=== PATIENT | male | born 1945 | race Caucasian/White ===

== ENCOUNTER 2020-06-22 17:51 | Inpatient (IN) ==
[2020-06-22] MEDS ORDERED: Acetaminophen 325 MG TABLET PO PRN (19:13)
[2020-06-22] MEDS ORDERED: Ondansetron ODT 4 MG TAB.RAPDIS SL PRN (19:13)
[2020-06-22] MEDS ORDERED: Naloxone 0.4 MG/ML INJ IVP PRN (19:13)
[2020-06-22] MEDS ORDERED: traZODone 50 MG TABLET PO PRN (20:03)
[2020-06-22] MEDS ORDERED: D5% in Water 1,000 ML IVC PRN (20:10)
[2020-06-22] MEDS ORDERED: *HR* Dextrose 50 % in Water (Vial) 50 ML VIAL IVP PRN (20:10)
[2020-06-22] MEDS ORDERED: Dextrose Gel 15 GM/37.5 ML TUBE PO PRN ×2 (20:10)
[2020-06-22] MEDS ORDERED: 0.9 % Sodium Chloride 1,000 ML IVC ONE (20:15)
[2020-06-22] MEDS: Melatonin 3 MG TABLET PO PRN (20:56)
[2020-06-22] MEDS: Famotidine 20 MG TABLET PO SCH (20:59)
[2020-06-22] MEDS ORDERED: Melatonin 3 MG TABLET PO PRN (21:00)
[2020-06-22] MEDS: *HR* Heparin 5,000 UNIT/ML VIAL SQ SCH (21:08)
[2020-06-22] MEDS ORDERED: hydrOXYzine pamoate 25 MG CAPSULE PO PRN (21:21)
[2020-06-22] MEDS: levoFLOXacin 750 MG/150 ML 750 MG/150 ML BAG IVPB SCH (21:59)
[2020-06-22] MEDS: Ipratropium/Albuterol Neb 3 ML IH PRN (22:16)
[2020-06-23] MEDS ORDERED: traZODone 50 MG TABLET PO PRN (00:49)
[2020-06-23] MEDS ORDERED: Saliva Stimulant 44.3ml BOTTLE PO PRN (01:13)
[2020-06-23] MEDS ORDERED: Menthol 1 EACH LOZENGE PO PRN (01:16)
[2020-06-23 04:55] LABS: Basophils % 0.1 %; Eosinophils % 0.3 %; Estimated Average Glucose 143 mg/dl; Hematocrit 48.9 % (37.5-50.1); Hemoglobin A1C 6.6 %; Immature Granulocytes % 0.2 % (0-4); Lymphocytes # 0.7 K/mcL (0.6-4.6); Lymphocytes % 7.6 %; Mean Corpuscular HGB Conc 32.7 g/dL (31.6-35.5); Mean Corpuscular Hemoglobin 31.1 pg (28.0-33.3); Monocytes # 0.7 K/mcL (0.0-1.3); Monocytes % 6.8 %; Neutrophils # 8.3 K/mcL (1.6-8.9); Platelet Count 153 K/mcL (140-400); Red Blood Count 5.15 M/mcL (4.19-5.50); Red Cell Distribution Width 14.4 % (11.5-14.5); White Blood Count 9.7 K/mcL (4.3-11.1)
[2020-06-23 05:13] LABS: Alanine Aminotransferase 15 Units/L (7-52); Albumin 3.5 g/dL (3.5-5.7); Albumin/Globulin Ratio 1.1 (1.1-2.2); Alkaline Phosphatase 81 Units/L (34-104); Aspartate Amino Transferase 16 Units/L (13-39); BUN/Creatinine Ratio 11 (6-26); Bilirubin,Total 1.2 mg/dL (0.3-1.0); Blood Urea Nitrogen 11 mg/dL (8-23); Calcium 8.5 mg/dL (8.6-10.3); Carbon Dioxide 29 mEq/L (23-29); Chloride 103 mEq/L (98-107); Globulin 3.1 g/dL (2.4-3.5); Glucose 115 mg/dL (70-105); Magnesium 1.8 mg/dL (1.6-2.6); Osmolality,Calculated 282 (280-300); Phosphorous 2.3 mg/dL (2.7-4.5); Potassium 4.1 mEq/L (3.5-5.1); Sodium 136 mEq/L (136-145); Total Protein 6.6 g/dL (6.4-8.9); eGFR For African Americans > 60 (> 60); eGFR For Non-African Americans > 60 (> 60)
[2020-06-23] MEDS: *HR* Heparin 5,000 UNIT/ML VIAL SQ SCH ×3 (06:43→20:36)
[2020-06-23] MEDS: Insulin LISPRO 300 UNITS/3 ML VIAL SUBQ SCH ×3 (08:58→17:21)
[2020-06-23] MEDS: Famotidine 20 MG TABLET PO SCH ×2 (09:41→20:35)
[2020-06-23] MEDS: levoFLOXacin 750 MG/150 ML 750 MG/150 ML BAG IVPB SCH (09:41)
[2020-06-23] MEDS: Ipratropium/Albuterol Neb 3 ML IH PRN ×3 (09:59→20:09)
[2020-06-23] MEDS ORDERED: hydrOXYzine pamoate 25 MG CAPSULE PO PRN (13:54)
[2020-06-23] MEDS: Piperacillin/Tazobactam 3.375 GM in 0.9 % Sodium Chloride Mini Bag 100 ML IVPB SCH ×2 (15:02→23:28)
[2020-06-23] MEDS: MethylPREDNISolone 40 MG/ML VIAL IVP SCH ×2 (15:02→23:28)
[2020-06-23] MEDS: Budesonide/Formoterol 160/4.5 1 PUFF INH IH SCH (20:09)
[2020-06-23] MEDS: Melatonin 3 MG TABLET PO PRN (20:43)
[2020-06-23] MEDS ORDERED: traZODone 50 MG TABLET PO SCH (21:00)
[2020-06-23] MEDS ORDERED: Pregabalin 75 MG CAPSULE PO SCH (21:00)
[2020-06-23] MEDS ORDERED: hydrOXYzine pamoate 25 MG CAPSULE PO SCH (21:00)
[2020-06-24 02:07] LABS: Hematocrit 49.3 % (37.5-50.1); Hemoglobin 16.2 g/dL (12.9-16.9); Mean Corpuscular HGB Conc 32.9 g/dL (31.6-35.5); Mean Corpuscular Hemoglobin 31.1 pg (28.0-33.3); Mean Corpuscular Volume 94.6 fL (83.0-100.0); Mean Platelet Volume 10.3 fL (9.4-12.4); Platelet Count 161 K/mcL (140-400); Red Blood Count 5.21 M/mcL (4.19-5.50); Red Cell Distribution Width 14.1 % (11.5-14.5); White Blood Count 4.9 K/mcL (4.3-11.1)
[2020-06-24] MEDS: *HR* Heparin 5,000 UNIT/ML VIAL SQ SCH ×2 (05:39→15:04)
[2020-06-24] MEDS: Ipratropium/Albuterol Neb 3 ML IH PRN ×2 (07:21→15:38)
[2020-06-24] MEDS: Budesonide/Formoterol 160/4.5 1 PUFF INH IH SCH (07:21)
[2020-06-24] MEDS: MethylPREDNISolone 40 MG/ML VIAL IVP SCH ×2 (08:47→15:04)
[2020-06-24] MEDS: Famotidine 20 MG TABLET PO SCH (08:47)
[2020-06-24] MEDS: Piperacillin/Tazobactam 3.375 GM in 0.9 % Sodium Chloride Mini Bag 100 ML IVPB SCH ×2 (08:47→16:44)
[2020-06-24] MEDS: levoFLOXacin 750 MG/150 ML 750 MG/150 ML BAG IVPB SCH (08:48)
[2020-06-24] MEDS: Insulin LISPRO 300 UNITS/3 ML VIAL SUBQ SCH ×3 (08:49→16:48)
[2020-06-24] MEDS ORDERED: Aspirin 81 MG TAB.CHEW PO SCH (09:00)
[2020-06-24] MEDS ORDERED: Tiotropium 10 INH DOSE IH SCH (10:00)
[2020-06-24] MEDS ORDERED: Dexamethasone 4 MG/ML VIAL ONE (10:37)
[2020-06-24] MEDS ORDERED: *HR* FentaNYL (PF) 100 MCG/2 ML VIAL IVP PRN (10:37)
[2020-06-24] MEDS ORDERED: Ondansetron 4 MG/2 ML VIAL IVP PRN (10:37)
[2020-06-24] MEDS ORDERED: *HR* FentaNYL (PF) 100 MCG/2 ML VIAL ONE (10:37)
[2020-06-24] MEDS ORDERED: Lidocaine -MPF 2% 2 ML VIAL ONE (10:37)
[2020-06-24] MEDS ORDERED: Ondansetron 4 MG/2 ML VIAL ONE (10:37)
[2020-06-24] MEDS ORDERED: *HR* Propofol 200 MG/20 ML VIAL IVP ONE (10:38)
[2020-06-24] MEDS ORDERED: *HR* Succinylcholine 200 MG/10 ML VIAL IVP ONE (10:40)
[2020-06-24] MEDS ORDERED: *HR* Midazolam HCl 2 MG/2 ML VIAL ONE (10:40)
[2020-06-24] MEDS ORDERED: Ringers Solution, Lactated 1,000 ML IVC SCH (10:45)
[2020-06-24] MEDS ORDERED: *HR* EPINEPHrine 1 MG/10 ML SYRINGE INTRATRACH PRN (11:00)
[2020-06-24] MEDS ORDERED: Ipratropium/Albuterol Neb 3 ML ONE (11:15)
[2020-06-24] MEDS ORDERED: *HR* EPINEPHrine 1 MG/10 ML SYRINGE ONE (11:50)
[2020-06-24 14:26] VITALS: BP 148/79
[2020-06-24 22:27] LABS: Appearance of Body Fluid Hazy (Clear); Volume of Body Fluid 15 mL
== END 2020-06-24 19:45 | disposition left against medical advice (07) | DRG 871 ==
LOC: 3ANU
PROVIDERS: ADMIT Internal Medicine; ATTEND Internal Medicine

== ENCOUNTER 2020-07-15 11:09 | Observation (INO) ==
[2020-07-15] MEDS ORDERED: Isovue-370 500 ML BOTTLE IVP ONE (11:30)
[2020-07-15 11:39] LABS: Bilirubin,Urine Negative (Negative); Blood,Urine Negative (Negative); Clarity,Urine Clear (Clear); Color,Urine Colorless (Yellow); Glucose,Urine (UA) Normal (Normal); Ketones,Urine Negative (Negative); Leukocyte Esterase,Urine Negative (Negative); Nitrite,Urine Negative (Negative); Protein,Urine Negative (Neg-Trace); Specific Gravity,Urine 1.005 (1.010-1.025); Urobilinogen,Urine Normal (Normal)
[2020-07-15] MEDS ORDERED: 0.9 % Sodium Chloride 1,000 ML IVC ONE (11:40)
[2020-07-15 11:42] LABS: Basophils % 0.1 %; Eosinophils % 0.1 %; Hematocrit 52.6 % (37.5-50.1); Hemoglobin 17.5 g/dL (12.9-16.9); Immature Granulocytes % 0.2 % (0-4); Lymphocytes # 0.9 K/mcL (0.6-4.6); Lymphocytes % 6.5 %; Mean Corpuscular HGB Conc 33.3 g/dL (31.6-35.5); Mean Corpuscular Hemoglobin 31.5 pg (28.0-33.3); Mean Corpuscular Volume 94.8 fL (83.0-100.0); Mean Platelet Volume 9.8 fL (9.4-12.4); Monocytes # 0.8 K/mcL (0.0-1.3); Neutrophils # 12.2 K/mcL (1.6-8.9); Platelet Count 160 K/mcL (140-400); Red Blood Count 5.55 M/mcL (4.19-5.50); Red Cell Distribution Width 14.4 % (11.5-14.5); Segmented Neutrophils % 87.1 %; White Blood Count 14.1 K/mcL (4.3-11.1)
[2020-07-15 12:16] LABS: BUN/Creatinine Ratio 13 (6-26); Blood Urea Nitrogen 13 mg/dL (8-23); Calcium 9.9 mg/dL (8.6-10.3); Carbon Dioxide 27 mEq/L (23-29); Chloride 99 mEq/L (98-107); Glucose 127 mg/dL (70-105); Osmolality,Calculated 284 (280-300); Potassium 4.1 mEq/L (3.5-5.1); Sodium 136 mEq/L (136-145); Troponin I < 0.03 ng/mL (< 0.04); eGFR For African Americans > 60 (> 60); eGFR For Non-African Americans > 60 (> 60)
[2020-07-15] MEDS ORDERED: Naloxone 0.4 MG/ML INJ IVP PRN (13:24)
[2020-07-15] MEDS ORDERED: *HR* Dextrose 50 % in Water (Vial) 50 ML VIAL IVP PRN (14:58)
[2020-07-15] MEDS ORDERED: D5% in Water 1,000 ML IVC PRN (14:58)
[2020-07-15] MEDS ORDERED: Dextrose Gel 15 GM/37.5 ML TUBE PO PRN ×2 (14:58)
[2020-07-15] MEDS: Ipratropium/Albuterol Neb 3 ML IH SCH ×3 (15:45→23:27)
[2020-07-15] MEDS: Insulin LISPRO 300 UNITS/3 ML VIAL SUBQ SCH ×2 (15:57→20:17)
[2020-07-15] MEDS: Budesonide/Formoterol 160/4.5 1 PUFF INH IH SCH (19:32)
[2020-07-15] MEDS: Pregabalin 75 MG CAPSULE PO SCH ×2 (20:44→20:47)
[2020-07-15] MEDS: Melatonin 3 MG TABLET PO SCH ×2 (20:44→22:01)
[2020-07-15] MEDS ORDERED: traZODone 50 MG TABLET PO SCH (21:00)
[2020-07-15] MEDS ORDERED: amLODIPine 5 MG TABLET PO SCH (21:00)
[2020-07-15] MEDS ORDERED: Insulin LISPRO 300 UNITS/3 ML VIAL SUBQ SCH (21:00)
[2020-07-15] MEDS ORDERED: Famotidine 20 MG TABLET PO SCH (21:00)
[2020-07-15] MEDS ORDERED: Budesonide/Formoterol 160/4.5 1 PUFF INH IH SCH (22:00)
[2020-07-16] MEDS: Ipratropium/Albuterol Neb 3 ML IH SCH ×3 (03:40→09:50)
[2020-07-16] MEDS ORDERED: Famotidine 20 MG/2 ML VIAL IVP SCH (06:22)
[2020-07-16] MEDS ORDERED: Lidocaine HCL 4 ML Topical Solution (Laryng-O-Jet Kit Sterile Pak) TP ONE (07:23)
[2020-07-16] MEDS ORDERED: *HR* FentaNYL (PF) 100 MCG/2 ML VIAL ONE (07:25)
[2020-07-16] MEDS ORDERED: Dexamethasone 4 MG/ML VIAL ONE (07:25)
[2020-07-16] MEDS ORDERED: *HR* Succinylcholine 200 MG/10 ML VIAL IVP ONE (07:25)
[2020-07-16] MEDS ORDERED: Lidocaine -MPF 2% 2 ML VIAL ONE (07:25)
[2020-07-16] MEDS ORDERED: *HR* Propofol 200 MG/20 ML VIAL IVP ONE ×2 (07:25→08:27)
[2020-07-16] MEDS ORDERED: Ondansetron 4 MG/2 ML VIAL ONE (07:25)
[2020-07-16] MEDS: Insulin LISPRO 300 UNITS/3 ML VIAL SUBQ SCH ×2 (07:28→12:05)
[2020-07-16] MEDS: Budesonide/Formoterol 160/4.5 1 PUFF INH IH SCH (07:48)
[2020-07-16] MEDS ORDERED: Lidocaine Viscous Oral Soln 15 ML SOLUTION ONE (08:04)
[2020-07-16] MEDS ORDERED: amLODIPine 5 MG TABLET PO SCH (09:00)
[2020-07-16] MEDS ORDERED: NON-FORMULARY MEDICATION 1 EACH EACH (Roflumilast [Daliresp] 500 MCG Tablet) PO SCH (09:00)
[2020-07-16] MEDS ORDERED: NON-FORMULARY MEDICATION 1 EACH EACH (Cyclosporine [Restasis] 1 EACH Droperette) BOTH EYES SCH (09:00)
[2020-07-16] MEDS ORDERED: Tiotropium 10 INH DOSE IH SCH (10:00)
[2020-07-16 10:16] LABS: Basophils % 0.2 %; Eosinophils # 0.1 K/mcL (0.0-0.6); Hematocrit 47.8 % (37.5-50.1); Immature Granulocytes % 0.2 % (0-4); Lymphocytes # 0.6 K/mcL (0.6-4.6); Lymphocytes % 11.8 %; Mean Corpuscular HGB Conc 32.2 g/dL (31.6-35.5); Mean Corpuscular Hemoglobin 31.6 pg (28.0-33.3); Mean Corpuscular Volume 98.2 fL (83.0-100.0); Mean Platelet Volume 9.8 fL (9.4-12.4); Monocytes # 0.4 K/mcL (0.0-1.3); Monocytes % 7.8 %; Neutrophils # 4.2 K/mcL (1.6-8.9); Platelet Count 144 K/mcL (140-400); Red Blood Count 4.87 M/mcL (4.19-5.50); Red Cell Distribution Width 14.5 % (11.5-14.5)
[2020-07-16 10:17] LABS: Hemoglobin 15.4 g/dL (12.9-16.9); White Blood Count 5.3 K/mcL (4.3-11.1)
[2020-07-16 10:43] VITALS: BP 125/75
[2020-07-16 23:38] LABS: Appearance of Body Fluid Clear (Clear); Volume of Body Fluid 15 mL
== END 2020-07-16 12:13 | disposition home or self-care (01) ==
LOC: EMEROOARM 11:09 → 3ANU 11:09 → SUATTDRO 13:37 → 3ANU 14:26
PROVIDERS: ADMIT Family Medicine; ATTEND Family Medicine

== ENCOUNTER 2020-12-04 11:52 | Inpatient (IN) ==
[2020-12-04] MEDS ORDERED: Ipratropium/Albuterol Neb 3 ML IH ONE (12:27)
[2020-12-04 13:03] LABS: Basophils % 0.1 %; Eosinophils % 0.1 %; Hemoglobin 16.3 g/dL (12.9-16.9); Immature Granulocytes % 0.4 % (0-4); Lymphocytes # 0.6 K/mcL (0.6-4.6); Lymphocytes % 3.4 %; Mean Corpuscular HGB Conc 32.6 g/dL (31.6-35.5); Mean Corpuscular Hemoglobin 29.9 pg (28.0-33.3); Mean Corpuscular Volume 91.6 fL (83.0-100.0); Mean Platelet Volume 10.2 fL (9.4-12.4); Monocytes % 5.6 %; Neutrophils # 16.6 K/mcL (1.6-8.9); Platelet Count 183 K/mcL (140-400); Red Blood Count 5.46 M/mcL (4.19-5.50); Red Cell Distribution Width 15.2 % (11.5-14.5); Segmented Neutrophils % 90.4 %; White Blood Count 18.4 K/mcL (4.3-11.1)
[2020-12-04 13:20] LABS: BUN/Creatinine Ratio 11 (6-26); Blood Urea Nitrogen 12 mg/dL (8-23); Carbon Dioxide 23 mEq/L (23-29); Chloride 102 mEq/L (98-107); Glucose 112 mg/dL (70-105); Osmolality,Calculated 279 (280-300); Potassium 4.2 mEq/L (3.5-5.1); Sodium 134 mEq/L (136-145); Troponin I < 0.03 ng/mL (< 0.04); eGFR For African Americans > 60 (> 60); eGFR For Non-African Americans > 60 (> 60)
[2020-12-04] MEDS ORDERED: Isovue-370 500 ML BOTTLE IVP ONE (13:39)
[2020-12-04] MEDS ORDERED: cefTRIAXone 1,000 MG in 0.9 % Sodium Chloride Mini Bag 100 ML IVPB ONE (13:42)
[2020-12-04] MEDS ORDERED: Azithromycin 500 MG in 0.9 % Sodium Chloride 250 ML IVPB ONE (13:42)
[2020-12-04] MEDS ORDERED: 0.9 % Sodium Chloride 500 ML IV ONE (14:44)
[2020-12-04] MEDS ORDERED: Acetaminophen 325 MG TABLET PO ONE (14:44)
[2020-12-04 15:56] LABS: Adenovirus Not Detected (Not Detect); Bordetella Pertussis Not Detected (Not Detect); Chlamydophila pneumoniae Not Detected (Not Detect); Coronavirus 229E Not Detected (Not Detect); Coronavirus HKU1 Not Detected (Not Detect); Coronavirus NL63 Not Detected (Not Detect); Coronavirus OC43 Not Detected (Not Detect); Human Metapneumovirus Not Detected (Not Detect); Human Rhinovirus/Enterovirus Not Detected (Not Detect); Influenza A Subtype 2009 H1 Not Detected (Not Detect); Influenza B Not Detected (Not Detect); Mycoplasma pneumoniae Not Detected (Not Detect); Parainfluenza Virus 1 Not Detected (Not Detect); Parainfluenza Virus 2 Not Detected (Not Detect); Parainfluenza Virus 3 Not Detected (Not Detect); Parainfluenza Virus 4 Not Detected (Not Detect); Respiratory Syncytial Virus Not Detected (Not Detect); SARS-CoV-2 Not Detected (Not Detect)
[2020-12-04] MEDS ORDERED: 0.9 % Sodium Chloride 1,000 ML IV ONE (16:15)
[2020-12-04] MEDS ORDERED: Melatonin 3 MG TABLET PO PRN (16:23)
[2020-12-04] MEDS ORDERED: Naloxone 0.4 MG/ML INJ IVP PRN (16:23)
[2020-12-04] MEDS ORDERED: Mag Hydrox/Al Hydrox/Simeth 30 ML UDC PO PRN (16:23)
[2020-12-04] MEDS ORDERED: Ondansetron 4 MG/2 ML VIAL IVP PRN (16:23)
[2020-12-04] MEDS ORDERED: traZODone 50 MG TABLET PO PRN (16:31)
[2020-12-04] MEDS ORDERED: *HR* Dextrose 50 % in Water (Vial) 50 ML VIAL IVP PRN (16:35)
[2020-12-04] MEDS ORDERED: Dextrose Gel 15 GM/37.5 ML TUBE PO PRN ×2 (16:35)
[2020-12-04] MEDS ORDERED: D5% in Water 1,000 ML IVC PRN (16:35)
[2020-12-04] MEDS: Tiotropium 10 INH DOSE IH SCH (18:22)
[2020-12-04] MEDS: Insulin LISPRO 300 UNITS/3 ML VIAL SUBQ SCH (20:16)
[2020-12-04] MEDS: Budesonide/Formoterol 160/4.5 1 PUFF INH IH SCH (21:04)
[2020-12-04] MEDS ORDERED: *HR* LORazepam 0.5 MG TABLET PO ONE (21:19)
[2020-12-04] MEDS: traZODone 50 MG TABLET PO SCH (21:56)
[2020-12-04] MEDS: Pregabalin 75 MG CAPSULE PO SCH (21:57)
[2020-12-04] MEDS: lisinopriL 5 MG TABLET PO SCH (21:57)
[2020-12-04] MEDS: Melatonin 3 MG TABLET PO SCH (21:57)
[2020-12-04] MEDS: 0.9 % Sodium Chloride 1,000 ML IVC SCH (22:06)
[2020-12-04] MEDS: Levalbuterol Neb 1.25 MG/3 ML IH SCH (22:19)
[2020-12-04 23:52] LABS: Adenovirus F 40/41 PCR Not detected (Not detect); Astrovirus PCR Not detected (Not detect); C.difficile Toxin A/B Gene PCR Not detected (Not detect); Campylobacter by PCR Not detected (Not detect); Cryptosporidium by PCR Not detected (Not detect); Cyclospora cayetanensis PCR Not detected (Not detect); E. coli O157 by PCR Not detected (Not detect); Entamoeba histolytica PCR Not detected (Not detect); Enteroaggregative E.coli(EAEC) Not detected (Not detect); Enteropathogenic E.coli(EPEC) DETECTED (Not detect); Enterotoxigenic E.coli (ETEC) Not detected (Not detect); Giardia lamblia PCR Not detected (Not detect); Norovirus GI/GII PCR Not detected (Not detect); Plesiomonas shigelloides PCR Not detected (Not detect); Rotavirus A PCR Not detected (Not detect); Salmonella PCR Not detected (Not detect); Sapovirus PCR Not detected (Not detect); Shig/EnteroinvasiveE coli EIEC Not detected (Not detect); Shigalike tox-prod E coli STEC Not detected (Not detect); Vibrio PCR Not detected (Not detect); Vibrio cholerae PCR Not detected (Not detect); Yersinia enterocolitica PCR Not detected (Not detect)
[2020-12-05] MEDS ORDERED: Bismuth Subsalicylate 120 ML ORAL SUSPENSION PO PRN (01:20)
[2020-12-05] MEDS: Levalbuterol Neb 1.25 MG/3 ML IH SCH ×4 (04:25→21:23)
[2020-12-05 08:15] LABS: BUN/Creatinine Ratio 12 (6-26); Blood Urea Nitrogen 14 mg/dL (8-23); Calcium 8.1 mg/dL (8.6-10.3); Carbon Dioxide 25 mEq/L (23-29); Chloride 107 mEq/L (98-107); Glucose 110 mg/dL (70-105); Osmolality,Calculated 285 (280-300); Potassium 4.1 mEq/L (3.5-5.1); Sodium 137 mEq/L (136-145); eGFR For African Americans > 60 (> 60); eGFR For Non-African Americans > 60 (> 60)
[2020-12-05 09:05] LABS: Basophils % 0.2 %; Eosinophils # 0.1 K/mcL (0.0-0.6); Eosinophils % 0.8 %; Hematocrit 46.2 % (37.5-50.1); Immature Granulocytes % 0.2 % (0-4); Lymphocytes # 0.6 K/mcL (0.6-4.6); Lymphocytes % 9.7 %; Mean Corpuscular Hemoglobin 29.7 pg (28.0-33.3); Mean Corpuscular Volume 95.9 fL (83.0-100.0); Mean Platelet Volume 10.3 fL (9.4-12.4); Monocytes # 0.4 K/mcL (0.0-1.3); Platelet Count 143 K/mcL (140-400); Red Blood Count 4.82 M/mcL (4.19-5.50); Red Cell Distribution Width 15.5 % (11.5-14.5); Segmented Neutrophils % 83.1 %
[2020-12-05 09:13] LABS: Hemoglobin 14.3 g/dL (12.9-16.9)
[2020-12-05] MEDS: *HR* GlipiZIDE XL (24 HR) 2.5 MG TABLET PO SCH (09:34)
[2020-12-05] MEDS: Metoprolol XL (24 HR) Succ 25 MG TAB.ER.24H PO SCH (09:34)
[2020-12-05] MEDS: Famotidine 20 MG TABLET PO SCH ×2 (09:34→21:40)
[2020-12-05] MEDS: Cholecalciferol (D-3) 1,000 UNIT (25MCG) TABLET PO SCH (09:34)
[2020-12-05] MEDS: Aspirin Enteric Coated 81 MG Tablet PO SCH (09:34)
[2020-12-05] MEDS: Insulin LISPRO 300 UNITS/3 ML VIAL SUBQ SCH ×3 (09:35→16:34)
[2020-12-05] MEDS: 0.9 % Sodium Chloride 1,000 ML IVC SCH (09:47)
[2020-12-05] MEDS: Azithromycin 500 MG in 0.9 % Sodium Chloride 250 ML IVPB SCH (09:47)
[2020-12-05] MEDS ORDERED: cefTRIAXone 1,000 MG in 0.9 % Sodium Chloride Mini Bag 100 ML IVPB ONE (10:00)
[2020-12-05 10:02] LABS: Estimated Average Glucose 151 mg/dl; Hemoglobin A1C 6.9 %
[2020-12-05] MEDS: Budesonide/Formoterol 160/4.5 1 PUFF INH IH SCH ×2 (11:21→21:23)
[2020-12-05] MEDS: Tiotropium 10 INH DOSE IH SCH (11:21)
[2020-12-05] MEDS ORDERED: Albuterol 2.5 MG/3 ML NEBULIZER IH PRN (11:59)
[2020-12-05] MEDS ORDERED: ALPRAZolam 0.5 MG TABLET PO ONE (18:33)
[2020-12-05] MEDS: lisinopriL 5 MG TABLET PO SCH (21:39)
[2020-12-05] MEDS: Pregabalin 75 MG CAPSULE PO SCH (21:40)
[2020-12-05] MEDS: Melatonin 3 MG TABLET PO SCH (21:46)
[2020-12-05] MEDS: traZODone 50 MG TABLET PO SCH (21:46)
[2020-12-05] MEDS ORDERED: *HR* LORazepam 2 MG/ML VIAL IVP ONE (21:58)
[2020-12-06] MEDS: Levalbuterol Neb 1.25 MG/3 ML IH SCH ×3 (03:43→16:05)
[2020-12-06] MEDS: Insulin LISPRO 300 UNITS/3 ML VIAL SUBQ SCH ×2 (07:48→11:24)
[2020-12-06] MEDS: Famotidine 20 MG TABLET PO SCH (08:16)
[2020-12-06] MEDS: Azithromycin 500 MG in 0.9 % Sodium Chloride 250 ML IVPB SCH (08:16)
[2020-12-06] MEDS: Aspirin Enteric Coated 81 MG Tablet PO SCH (08:16)
[2020-12-06] MEDS: Cholecalciferol (D-3) 1,000 UNIT (25MCG) TABLET PO SCH (08:16)
[2020-12-06] MEDS: Metoprolol XL (24 HR) Succ 25 MG TAB.ER.24H PO SCH (08:16)
[2020-12-06] MEDS: *HR* GlipiZIDE XL (24 HR) 2.5 MG TABLET PO SCH (08:16)
[2020-12-06] MEDS ORDERED: cefTRIAXone 1,000 MG in Water for inj. (sterile) 10 ML IVP SCH (10:00)
[2020-12-06 10:45] LABS: BUN/Creatinine Ratio 12 (6-26); Blood Urea Nitrogen 14 mg/dL (8-23); Calcium 8.6 mg/dL (8.6-10.3); Carbon Dioxide 26 mEq/L (23-29); Chloride 107 mEq/L (98-107); Glucose 150 mg/dL (70-105); Osmolality,Calculated 287 (280-300); Potassium 4.5 mEq/L (3.5-5.1); Sodium 137 mEq/L (136-145); eGFR For African Americans > 60 (> 60); eGFR For Non-African Americans > 60 (> 60)
[2020-12-06] MEDS: Tiotropium 10 INH DOSE IH SCH (10:57)
[2020-12-06] MEDS: Budesonide/Formoterol 160/4.5 1 PUFF INH IH SCH (10:57)
[2020-12-06 11:20] LABS: Basophils % 0.1 %; Eosinophils % 0.4 %; Hematocrit 46.2 % (37.5-50.1); Hemoglobin 14.3 g/dL (12.9-16.9); Immature Granulocytes % 0.1 % (0-4); Lymphocytes # 0.6 K/mcL (0.6-4.6); Lymphocytes % 8.6 %; Mean Corpuscular Hemoglobin 29.4 pg (28.0-33.3); Mean Corpuscular Volume 95.1 fL (83.0-100.0); Mean Platelet Volume 10.7 fL (9.4-12.4); Monocytes # 0.6 K/mcL (0.0-1.3); Monocytes % 8.2 %; Neutrophils # 6.1 K/mcL (1.6-8.9); Platelet Count 183 K/mcL (140-400); Red Blood Count 4.86 M/mcL (4.19-5.50); Red Cell Distribution Width 15.6 % (11.5-14.5); Segmented Neutrophils % 82.6 %; White Blood Count 7.4 K/mcL (4.3-11.1)
[2020-12-06 14:12] VITALS: BP 145/74; PULSE 80; TEMP 98.4; O2SAT 96
== END 2020-12-06 16:20 | disposition home or self-care (01) | DRG 871 ==
LOC: EMEROOARM 11:52 → 3ANU 11:52
PROVIDERS: ADMIT Internal Medicine; ATTEND Hospitalist